=== PATIENT | female | born 1940 | race Caucasian/White ===

== ENCOUNTER 2019-04-21 08:50 | Outpatient (CLI) | payer MEDICARE ==
--- NOTE | 2019-04-21 09:17 | BD ---
EXAM: Bone densitometry using DEXA HISTORY: 78 yo female. Screening for postmenopausal osteoporosis FINDINGS: L1--bone mineral density 0.766 g/sq cm; T score -2.0 ; Z score 0.3 L2--bone mineral density 0.815 g/sq cm; T score -1.9 ; Z score 0.7 L3--bone mineral density 0.892 g/sq cm; T score -1.7 ; Z score 1.0 L4--bone mineral density 0.786 g/sq cm; T score -2.5 ; Z score 0.4 Total L1-L4--bone mineral density 0.816 g/sq cm; T score -2.1 ; Z score 0.6 Left femoral neck--bone mineral density0.604; T score -2.2 ; Z score 0.1 Total proximal left femur--bone mineral density 0.833; T score -0.9 ; Z score 1.2 There has been an interval increase of 8.6% in the BMD of the lumbar spine and a increase of 5.9% i n the BMD of the proximal femur since the previous study of 11/19/2016. The 10 year fracture risk for a major osteoporotic fracture is 31% and for a hip fracture is 12%. IMPRESSION: Osteopenia
== END 2019-04-21 08:51 | disposition home or self-care (01) ==
LOC: BICMAMMO 08:50
PROVIDERS: ATTEND Family Medicine
DX: Z13.820 Encounter for screening for osteoporosis (principal); M85.80 Other specified disorders of bone density and structure, unspecified site; Z78.0 Asymptomatic menopausal state
CPT/HCPCS: 77080

== ENCOUNTER 2021-10-29 08:20 | Outpatient (CLI) | payer MEDICARE | END 2021-10-29 08:21 | disposition home or self-care (01) | LOC: BICRAD 08:20 | PROVIDERS: ATTEND Family Medicine | DX: S89.92XA Unspecified injury of left lower leg, initial encounter (principal); M17.12 Unilateral primary osteoarthritis, left knee ==